=== PATIENT | female | born 1975 ===

== ENCOUNTER 2020-10-01 06:00 | Day surgery (SDC) | payer OTHER ==
[~2020-10-01 06:00] MED LIST: ATIVAN0.5 M1 PO; LEXAPRO PO
== END 2020-10-01 18:38 | disposition home or self-care (01) ==
LOC: CIR.AMB 06:00
PROVIDERS: ATTEND Orthopaedic Surgery Hand Surgery
DX: D48.1 Neoplasm of uncertain behavior of connective and other soft tissue (principal); Z20.822 Contact with and (suspected) exposure to COVID-19